=== PATIENT | female | born 1980 | race Caucasian/White ===

== ENCOUNTER 2016-10-28 22:06 | Emergency (ER) | payer OTHER ==
[~2016-10-28] VITALS: Ht 162.6 cm; Wt 72.7 kg
[2016-10-28 22:06] VITALS: BP 114/75
[2016-10-28] MEDS ORDERED: GLIP1TAB51 (22:15)
[2016-10-28] MEDS ORDERED: ALOG25TA (22:15)
[2016-10-28] MEDS ORDERED: BASA100I (22:15)
[2016-10-28] MEDS ORDERED: NORCO 5/325MG TABLET (BULK FOR ED) PO ONE (23:30)
[2016-10-28] MEDS ORDERED: BENZONATATE 100 MG CAP PO ONE (23:30)
[2016-10-28] MEDS ORDERED: predniSONE 20 MG TAB PO ONE (23:30)
[2016-10-28] MEDS ORDERED: IPRATROPIUM 0.5MG/ALBUTEROL 2.5MG INH SOL UD 3ML (DUONEB)(J7620) NEB ONE (23:30)
[2016-10-28] MEDS ORDERED: TESS100C PO (23:45)
[2016-10-28] MEDS ORDERED: PRED10TA2 PO (23:45)
[2016-10-28] MEDS ORDERED: ALBU17IN INH (23:45)
== END 2016-10-29 00:06 | disposition home or self-care (01) ==
LOC: M ED 22:06
DX: J44.9 Chronic obstructive pulmonary disease, unspecified (principal); J06.9 Acute upper respiratory infection, unspecified; Z72.0 Tobacco use

== ENCOUNTER → 2016-12-15 | Outpatient (REF) | payer OTHER ==
[~2016-12-15] MED LIST: ALBU17IN INH; ALOG25TA; BASA100I; GLIP1TAB51; PRED10TA2 PO; TESS100C PO
[2016-12-15 23:36] LABS: REASON FOR REVIEW COMPREHENSIVE REVIEW
== END ==
LOC: M LAB REF 14:32
PROVIDERS: ATTEND Internal Medicine Medical Oncology
DX: D75.1 Secondary polycythemia (principal)

== ENCOUNTER → 2016-12-21 | Outpatient (CLI) | payer OTHER ==
--- NOTE | 2016-12-21 10:47 | REP ---
ABDOMINAL SONOGRAPHY: HISTORY: Evaluate for hepatosplenomegaly. FINDINGS: Scanning through the right upper quadrant of the abdomen demonstrates a normal sized thin-walled gallbladder containing granular material in its dependent portion consistent with gravel like gallstones. No pericholecystic fluid is seen. Common bile duct is normal measuring 0.4 cm in greatest diameter. The liver is not felt to be enlarged with a craniocaudal dimension of 16.8 cm in the midclavicular line. No focal liver lesion is seen. No pancreatic abnormality is observed. The spleen measures 10.1 cm in greatest transverse dimension and is felt to be normal size. It is homogeneous. A normal caliber aorta is seen. Renal cortical echogenicity pattern is normal and renal contours are smooth bilaterally. The right kidney measures 11.3 x 6.2 x 5.1 cm. Left renal dimensions are 12.5 x 5.4 x 6.3 cm. No evidence hydronephrosis is seen. No cyst or mass is observed. IMPRESSION: Gravel like calculi the gallbladder. Otherwise negative complete abdominal sonography. Signed by Phu Torres MD 12/21/2016 01:18 P
== END ==
LOC: M RAD 08:54
PROVIDERS: ATTEND Internal Medicine Medical Oncology
DX: R16.1 Splenomegaly, not elsewhere classified (principal)

== ENCOUNTER 2018-05-25 17:18 | Inpatient (IN) | payer OTHER ==
[~2018-05-25] VITALS: Ht 157.5 cm; Wt 77.1 kg
[~2018-05-25 17:18] MED LIST changes: -ALOG25TA; +ALOG25TA PO; +GLIP10TA18 PO; -GLIP1TAB51
[2018-05-25] MEDS ORDERED: METO1TAB32 PO (17:45)
[2018-05-25] MEDS ORDERED: BASA100I SC (19:27)
[2018-05-25] MEDS ORDERED: VENTAER INH (19:27)
[2018-05-25] MEDS ORDERED: HEPARIN DRIP 25,000 UNITS in APPROPRIATE DILUENT 1 EA IV SCH (19:33)
[2018-05-25] MEDS ORDERED: HEPARIN SOD (PORCINE) 5000 UNITS/ML VIAL IV ONE (19:45)
[2018-05-25] MEDS ORDERED: HEPARIN SOD (PORCINE) 5000 UNITS/ML VIAL IV PRN (19:45)
[2018-05-25 20:35] LABS: HEMATOCRIT 49.7 % (36.0-47.0); HEMOGLOBIN 16.6 g/dl (12.0-15.5); MEAN CORPUSCULAR HEMOGLOBIN 29.2 pg (27.0-33.0); MEAN CORPUSCULAR HGB CONC 33.4 g/dl (32.0-36.5); MEAN CORPUSCULAR VOLUME 87.5 fl (80.0-96.0); PLATELET COUNT, AUTOMATED 259 10^3/uL (150-450); RED BLOOD COUNT 5.68 10^6/uL (4.00-5.40); WHITE BLOOD COUNT 12.8 10^3/uL (4.0-10.0)
--- NOTE | 2018-05-25 20:38 | REPVR ---
EXAM: US Duplex Right Lower Extremity Arteries EXAM DATE/TIME: 05/25/2018 6:40 PM CLINICAL HISTORY: 38 years old, female; Pain; Toes; Left; Additional info: Left first toe ischemia TECHNIQUE: Right Real-time ultrasound scan of the arteries of the right lower extremity with 2-D pinto scale, color Doppler flow and spectral waveform analysis. COMPARISON: No relevant prior studies available. FINDINGS: An real time arterial Doppler examination was performed of the left leg using pulsed Doppler and color Doppler with pinto scale imaging. Peak Systolic Velocity Measurements: Common Femoral Artery: 321 cm/sec Deep Femoral Artery: 70 cm/sec Proximal Superficial Femoral Artery: 56 cm/sec Mid Superficial Femoral Artery: 56 cm/sec Distal Superficial Femoral Artery: 37 cm/sec Popliteal Artery: 25 cm/sec Anterior Tibial Artery(proximal): 9 cm/sec Anterior tibial artery (distal): 11 cm/s Tibioperoneal trunk: 18 cm/s Posterior Tibial Artery (proximal): 31cm/sec Posterior tibial artery (distal): 24 cm/s Ankle brachial indices Posterior tibial artery 0.7 Anterior tibial artery 0.76 Soft tissues: Unremarkable. Findings: Diffuse moderate arteriosclerosis. Focal velocity increase at the level of the common femoral artery suggests a moderate stenosis. Down stream vessel waveforms maintain a normal systolic upstroke. A velocity gradient at the level the anterior tibial artery suggests in at least moderate stenosis. Again prompt systolic upstroke noted. Impression: 1. Moderate stenosis of left common femoral artery. 2. Moderate stenosis of the proximal anterior tibial artery. 3. ROLA indicates moderate peripheral arterial disease Electronically signed by: Katy Salinas On 05/25/2018 20:37:32 PM
[2018-05-25 20:44] LABS: BLOOD UREA NITROGEN 27 MG/DL (7-18); C REACTIVE PROTEIN QUANTITATIV 0.68 MG/DL (0.00-0.30); CARBON DIOXIDE LEVEL 24 MEQ/L (21-32); CHLORIDE LEVEL 104 MEQ/L (98-107); CREATININE FOR GFR 0.71 MG/DL (0.55-1.30); GLOMERULAR FILTRATION RATE > 60.0 (>58); GLUCOSE, FASTING 186 MG/DL (70-100); POTASSIUM SERUM 4.3 MEQ/L (3.5-5.1); SODIUM LEVEL 138 MEQ/L (136-145)
[2018-05-25 20:48] LABS: INR 0.93; PROTHROMBIN TIME 12.6 SECONDS (12.1-14.4)
[2018-05-25] MEDS: SENOKOT S TAB PO SCH (21:00)
[2018-05-25] MEDS: DOCUSATE SODIUM 100 MG CAP PO SCH (21:00)
[2018-05-25] MEDS: PANTOPRAZOLE 40MG INJ (PROTONIX) (C9113) IV SCH (21:00)
[2018-05-25] MEDS ORDERED: MOM 30ML SUSPENSION UDC PO PRN (21:45)
[2018-05-25] MEDS ORDERED: ALBUTEROL 90 MCG/ACT 8GM HFA INHALER INH PRN (21:45)
[2018-05-25] MEDS ORDERED: BISACODYL 10 MG SUPP PR PRN (21:45)
--- NOTE | 2018-05-25 21:54 | HPEPDOC ---
General Date of Admission 05/25/2018 Attending Physician: Librado Koehler MD Chief Complaint The patient is a 38-year-old female admitted with a reason for visit of Toe Problem. Source: Patient Exam Limitations: No limitations History of Present Illness Patient is a 38-year-old female with tobacco history and traumatic injury to her left first toe. Patient was seen at an outside hospital and transferred to [facility] for evaluation. Patient has gangrene and ischemia of the left first toe and nonpalpable pulses in the left foot and will be admitted for angiography of the left lower extremity. Patient is at high risk for loss of her left first toe. Patient denies any claudication. Patient denies any TIAs or rest pain. Patient notes that she hit her toe on the ice while she was walking and a color change and has been exquisitely painful since. Home Medications Scheduled (Basaglar Kwikpen) 100 Unit/Ml Inj, 16 UNIT SC QHS, (Reported) Alogliptin Benzoate (Alogliptin) 25 Mg Tab, 25 MG PO DAILY, (Reported) Clopidogrel Bisulfate (Plavix) 75 Mg Tab, 75 MG PO DAILY Glipizide (Glipizide ER) 10 Mg Tab, 10 MG PO DAILY, (Reported) Metoprolol Succinate (Metoprolol Succinate ER) 25 Mg Tab, 25 MG PO DAILY, (Reported) Scheduled PRN Acetaminophen/Hydrocodone ([place], Anexsia 5/325) 1 Tab Tab, 1 TAB PO Q4HP PRN for MODERATE PAIN (PS 5-7) Albuterol Sulfate (Ventolin Hfa) 108 Mcg/Act Aer, 2 PUFF INH Q4H PRN for SHORTNE SS OF BREATH, (Reported) Allergies Coded Allergies: MS - Metformin (Verified Allergy, Unknown, 05/25/18) MS - Tomato (Verified Allergy, Unknown, 05/25/18) Past Medical History Medical History Diabetes mellitus Tobacco history Surgical History None Family History Significant Family History: No pertinent family hx Hypertension Social History * Smoker: current smoker Alcohol: occationally Recent Travel/Sick Contacts: Denies: Recent travel, Recent sick contacts Psychosocial History: No pertinent psych hx Review of Systems Constitutional: Denies: Chills, Fever, Malaise, Night Sweats, Weakness, Fatigue, Weight Loss, Lethargy Eyes: Denies: Pain, Vision change, Conjunctivae inflammation, Eyelid inflammation, Redness ENT: Denies: Head Aches, Ear Pain, Dysphagia, Sinus Congestion, Post Nasal Drip, Sore Throat, Epistaxis Skin: Denies: Rash, Lesions, Jaundice, Bruising, Itching, Dry, Breakdown, Nail Changes Pulmonary: Denies: Dyspnea, Cough, Pleuritic Chest Pain Cardiovascular: Denies: Chest Pain, Palpitations, Orthopnea, Paroxysmal Noc. Dyspnea, Edema, Lt Headedness Gastrointestinal: Denies: Nausea, Vomiting, Abdominal Pain, Diarrhea, Constipation, Melena, Hematochezia Genitourinary: Denies: Dysuria, Frequency, Incontinence, Hematuria, Retention Hematologic: Denies: Bruising, Bleeding Excessively, Petecchia, Purpura, En larged Lymph Nodes Endocrine: Denies: Polydipsia, Polyphagia, Polyuria, Heat Intolerance, Cold Intolerance Musculoskeletal: Denies: Neck Pain, Back Pain, Shoulder Pain, Arm Pain, Hand Pain, Leg Pain, Foot Pain, Joint Pain, Muscle Pain, Spasms Neurological: Denies: Weakness, Numbness, Incoordination, Change in speech, Confusion, Seizures Psych: Reports: Mood Normal; Denies: Anxiety, Depression, Memory Issues, Thoughts of Self Harm, Anger, Thoughts of Harming Other Physical Examination General Exam: Positive: Alert, Cooperative, Mild Distress Eye Exam: Positive: PERRLA ENT Exam: Positive: Atraumatic, Mucous membr. moist/pink, Pharynx Normal, Tongue Midline, Nares Patent Neck Exam: Positive: Supple, +2 carotid pulse wo bruit Chest Exam: Positive: Clear to auscultation, Normal air movement Heart Exam: Positive: Rate Normal Telemetry: Positive: No significant arrhythmia Abdomen Exam: Positive: Normal bowel sounds Extremity Exam: Positive: Other (patient has nonpalpable pulses in the left lo wer extremity but the dorsalis pedis and posterior tibial pulses are obtainable with Doppler and are biphasic) Skin Exam: Positive: Nl turgor and temperature Neuro Exam: Positive: Normal Gait, Normal Speech, Strength at 5/5 X4 ext, Normal Tone, Sensation Intact, Cranial Nerves 3-12 NL, Reflexes 2+ Psych Exam: Positive: Mental status NL, Mood NL, Memory Intact, Oriented x 3 Vital Signs Vital Signs Date Time Temp Pulse Resp B/P (MAP) Pulse Ox O2 Delivery O2 Flow Rate FiO2 05/25/18 21:03 100 18 98 Room Air 05/25/18 21:00 108/80 (89) 05/25/18 17:19 99.2 Laboratory Data Labs 24H Laboratory Tests 2 05/25/18 19:53: Nucleated Red Blood Cells % (auto) 0.0, Prothrombin Time 12.6, Prothromb Time International Ratio 0.93, Activated Partial Thromboplast Time 27.0, Anion Gap 10, Glomerular Filtration Rate > 60.0, Blood Urea Nitrogen 27H, Creatinine 0.71, Sodium Level 138, Potassium Level 4.3, Chloride Level 104, Carbon Dioxide Level 24, Calcium Level 9.0, C-Reactive Protein, Quantitative 0.68H CBC/BMP Laboratory Tests 05/25/18 19:53 Red Blood Count 5.68 H, Mean Corpuscular Volume 87.5, Mean Corpuscular Hemoglobin 29.2, Mean Corpuscular Hemoglobin Concent 33.4, Red Cell Distribution Width 13.2, Calcium Level 9.0 Assessment/Plan Assessment Patient is a 38-year-old female with traumatic injury to her left first toe with ischemia and gangrene of the left toe with nonpalpable pulses in the left lower extremity. Patient has a significant tobacco history. Plan Patient will be admitted started on heparin drip and will undergo a left lower extremity angiogram with possible angioplasty stent and/or arthrectomy. Librado Koehler MD May 25, 2018 21:54
[2018-05-25] MEDS: MORPHINE 4 MG/ML 1ML VIAL/SYRINGE (J2270) IV PRN (22:58)
[2018-05-25] MEDS: PIPERACILLIN/TAZOBACTAM SOD 3.375 GM in D5W MINI-BAG PLUS 50 ML IV SCH (23:38)
[2018-05-26 01:45] VITALS: BP 116/71
[2018-05-26] MEDS ORDERED: HEPARIN DRIP 25,000 UNITS in APPROPRIATE DILUENT 1 EA IV SCH (02:10)
[2018-05-26 03:00] LABS: HEMATOCRIT 44.8 % (36.0-47.0); HEMOGLOBIN 15.1 g/dl (12.0-15.5); MEAN CORPUSCULAR HEMOGLOBIN 29.7 pg (27.0-33.0); MEAN CORPUSCULAR HGB CONC 33.7 g/dl (32.0-36.5); PLATELET COUNT, AUTOMATED 224 10^3/uL (150-450); RED BLOOD COUNT 5.09 10^6/uL (4.00-5.40); WHITE BLOOD COUNT 10.7 10^3/uL (4.0-10.0)
[2018-05-26] MEDS: HEPARIN SOD (PORCINE) 5000 UNITS/ML VIAL IV PRN ×2 (03:06→10:42)
[2018-05-26] MEDS: NORCO, ANEXSIA 5/325MG TABLET (HYDROcodone/ACETAMINOPHEN) PO PRN ×2 (04:53→20:58)
[2018-05-26] MEDS: PIPERACILLIN/TAZOBACTAM SOD 3.375 GM in D5W MINI-BAG PLUS 50 ML IV SCH ×4 (06:00→23:29)
[2018-05-26] MEDS: PANTOPRAZOLE 40MG INJ (PROTONIX) (C9113) IV SCH ×2 (09:12→20:59)
[2018-05-26] MEDS: glipiZIDE XL 5 MG TABCR PO SCH (09:13)
[2018-05-26] MEDS: METOPROLOL SUCC *XL* 25MG TAB (TopROL *XL*) PO SCH (09:14)
[2018-05-26 09:15] VITALS: BP 128/77
[2018-05-26] MEDS: DOCUSATE SODIUM 100 MG CAP PO SCH ×2 (09:15→20:58)
[2018-05-26] MEDS: SENOKOT S TAB PO SCH ×2 (09:15→20:58)
[2018-05-26] MEDS: MORPHINE 4 MG/ML 1ML VIAL/SYRINGE (J2270) IV PRN ×4 (12:07→23:30)
[2018-05-26] MEDS ORDERED: LIDOCAINE 2% MDV 20 ML VIAL As Ordered ONE (16:17)
[2018-05-26] MEDS ORDERED: MIDAZOLAM INJ 2 MG/2 ML VIAL (J2250) As Ordered ONE (16:17)
[2018-05-26] MEDS ORDERED: HEPARIN 1,000 UNITS/ML 10ML VIAL (FOR RADIOLOGY& DIALYSIS ONLY) As Ordered ONE (16:17)
[2018-05-26] MEDS ORDERED: fentaNYL 100 MCG/2 ML INJECTION (J3010) As Ordered ONE (16:17)
[2018-05-26] MEDS ORDERED: ISOVUE-300 61% 50ML VIAL (Q9967) As Ordered ONE (16:18)
[2018-05-26 18:00] VITALS: BP 163/87
[2018-05-26 18:30] VITALS: BP 144/90
[2018-05-26] MEDS ORDERED: CLOPIDOGREL 300 MG TAB (PLAVIX) PO STA (18:53)
[2018-05-26 19:30] VITALS: BP 116/70
[2018-05-26 20:30] VITALS: BP 115/67
[2018-05-27] MEDS: NORCO, ANEXSIA 5/325MG TABLET (HYDROcodone/ACETAMINOPHEN) PO PRN ×3 (03:37→13:35)
[2018-05-27 04:00] VITALS: BP 131/83
[2018-05-27] MEDS: PIPERACILLIN/TAZOBACTAM SOD 3.375 GM in D5W MINI-BAG PLUS 50 ML IV SCH ×2 (05:11→11:04)
[2018-05-27] MEDS: MORPHINE 4 MG/ML 1ML VIAL/SYRINGE (J2270) IV PRN ×2 (06:33→11:02)
[2018-05-27 08:00] VITALS: BP 133/79
[2018-05-27] MEDS: SENOKOT S TAB PO SCH (08:50)
[2018-05-27] MEDS: DOCUSATE SODIUM 100 MG CAP PO SCH (08:50)
[2018-05-27 08:51] VITALS: BP 133/79
[2018-05-27] MEDS: PANTOPRAZOLE 40MG INJ (PROTONIX) (C9113) IV SCH (08:51)
[2018-05-27] MEDS: glipiZIDE XL 5 MG TABCR PO SCH (08:51)
[2018-05-27] MEDS: METOPROLOL SUCC *XL* 25MG TAB (TopROL *XL*) PO SCH (08:51)
[2018-05-27] MEDS ORDERED: NORCOTAB PO (11:43)
[2018-05-27] MEDS ORDERED: PLAV1TAB2 PO (11:43)
--- NOTE | 2018-05-27 11:45 | ROOPDOC ---
Librado Koehler MD May 27, 2018 11:45
--- NOTE | 2018-05-27 11:46 | DS.PDOC ---
Discharge Summary General Date of Admission May 25, 2018 at 21:44 Date of Discharge 05/27/2018 Attending Physician: Librado Koehler MD Discharge Summary PROCEDURES PERFORMED DURING STAY: Aortogram, iliofemoral angiogram left lower extremity angiography.. ADMITTING DIAGNOSES: 1. Gangrene and ischemia of the left first toe, tobacco use. DISCHARGE DIAGNOSES: 1. Gangrene and ischemia of the left first toe, tobacco use, aortoiliac atherosclerotic arterial occlusive disease, femoral-popliteal arterial atherosclerotic occlusive disease.. COMPLICATIONS/CHIEF COMPLAINT: Injury Of L Toe,Ischemia Of Lower Extremity. HISTORY OF PRESENT ILLNESS: Patient is a 38-year-old female who had dramatic injury to her left first toe which turned colors and was ischemic with gangrene and nonpalpable pulses in the left lower extremity. HOSPITAL COURSE: Patient was admitted and underwent angiography which showed brandie nosis in the left iliac artery as well as the left common femoral artery which did not require intervention. Patient's pain was controlled with narcotic oral pain medication. Patient was instructed on the need to stop tobacco use. Patient will be discharged home with instructions to follow-up in the office. DISCHARGE MEDICATIONS: Please see below. ALLERGIES: Please see below. PHYSICAL EXAMINATION ON DISCHARGE: VITAL SIGNS: Please see below. GENERAL: No apparent distress HEENT: Normal NECK: Supple with no carotid bruits CARDIOVASCULAR EXAMINATION: Regular rate and rhythm RESPIRATORY EXAMINATION: Clear to auscultation bilaterally ABDOMINAL EXAMINATION: Soft nontender nondistended with no palpable pulsatile mass EXTREMITIES: Warm and well-perfused. Left first toe is discolored with some gangrene of the tip of the toe and the nail. Patient has nonpalpable left lower extreme A pulses but are obtainable with Doppler. Right lower extremity shows 2+ dorsalis pedis and posterior tibial pulses. SKIN: Warm and well-perfused NEUROLOGICAL EXAMINATION: Awake alert oriented 3 with no focal deficits PSYCHIATRIC EXAMINATION: Normal LABORATORY DATA: Please see below. IMAGING: Angiography showed stenosis in the left iliac artery and left common femoral artery. PROGNOSIS: Good ACTIVITY: As tolerated. DIET: Low-fat low-cholesterol diet DISCHARGE PLAN: Patient will be discharged home DISPOSITION: . DISCHARGE INSTRUCTIONS: 1. Stop smoking, begin exercising and follow-up in the office in 1-2 weeks.. ITEMS TO FOLLOWUP ON ON OUTPATIENT: 1. Looking cessation. DISCHARGE CONDITION: Stable. TIME SPENT ON DISCHARGE: Greater than 45 minutes. Vital Signs/I&Os Vital Signs Date Time Temp Pulse Resp B/P (MAP) Pulse Ox O2 Delivery O2 Flow Rate FiO2 05/27/18 11:02 16 05/27/18 08:51 110 133/79 05/27/18 08:00 98.4 97 05/26/18 01:39 Room Air I&O- Last 24 Hours up to 6 AM 05/27/18 06:00 Intake Total 1194.5 ml Output Total 350 ml Balance 844.5 ml Discharge Medications Scheduled (Basaglar Kwikpen) 100 Unit/Ml Inj, 16 UNIT SC QHS, (Reported) Alogliptin Benzoate (Alogliptin) 25 Mg Tab, 25 MG PO DAILY, (Reported) Clopidogrel Bisulfate (Plavix) 75 Mg Tab, 75 MG PO DAILY Glipizide (Glipizide ER) 10 Mg Tab, 10 MG PO DAILY, (Reported) Metoprolol Succinate (Metoprolol Succinate ER) 25 Mg Tab, 25 MG PO DAILY, (Reported) Scheduled PRN Acetaminophen/Hydrocodone ([place], Anexsia 5/325) 1 Tab Tab, 1 TAB PO Q4HP PRN for MODERATE PAIN (PS 5-7) Albuterol Sulfate (Ventolin Hfa) 108 Mcg/Act Aer, 2 PUFF INH Q4H PRN for SHORTNESS OF BREATH, (Reported) Allergies Coded Allergies: MS - Metformin (Verified Allergy, Unknown, 05/25/18) MS - Tomato (Verified Allergy, Unknown, 05/25/18) Librado Koehler MD May 27, 2018 11:45
[2018-05-27 12:00] VITALS: BP 163/103
[2018-05-27] MEDS ORDERED: CLOPIDOGREL 75 MG TAB PO ONE (12:00)
--- NOTE | 2018-06-15 09:03 | REPIR ---
DATE OF PROCEDURE: 05/26/2018 PREOPERATIVE DIAGNOSES: Diabetes mellitus, left first toe gangrene, tobacco use. POSTOPERATIVE DIAGNOSES: Diabetes mellitus, left first toe gangrene, aortoiliac atherosclerotic occlusive disease, femoral-popliteal arterial atherosclerotic occlusive disease, tobacco use. PROCEDURE: Aortogram, iliofemoral angiogram, bilateral lower extremity angiography, Mynx closure device of the right common femoral arteriotomy. ATTENDING SURGEON: Dr. Raeann Koehler [employer] MECH[employer]IC: Eunice Becker ANESTHESIA: Local with 10 mL of 2% lidocaine. FLUORO TIME: 0.6 minutes. CONTRAST: 22 mL of Isovue-300. HEPARIN: None. COMPLICATIONS: None. DRAINS: None. SPECIMENS: None. IMPLANTS: None. INDICATIONS: The patient is a 38-year-old female who presented to the emergency room from an [facility] with gangrene and severe pain in her left first toe. The patient was transferred to [facility], evaluated, and admitted to the hospital to undergo angiography due to critical limb ischemia and gangrene of her left first toe. The patient will undergo angiography with possible angioplasty stent and/or atherectomy. Risks, benefits and alternative treatment options were discussed with the patient. DESCRIPTION OF PROCEDURE: The patient was taken to the angiography suite, placed supine on the angiography room table and then prepped and draped in standard surgical fashion. The right common femoral artery was cannulated with a micropuncture needle after anesthetizing the overlying skin with 2% lidocaine. A micropuncture wire was advanced to a micropuncture needle, which was upsized to a micropuncture sheath. A Bentson wire was advanced to the micropuncture sheath, which was upsized to a 5-Swedish sheath. An Omni flush catheter was placed in aorta and aortogram was performed. Catheter was pulled down to the level of the bifurcation of the iliac arteries and iliofemoral angiogram was performed. Catheter remained at the bifurcation iliac arteries and bilateral lower extremity angiography was performed. Catheter was then removed over a Bentson wire. A Mynx closure device was used to close the arteriotomy in the right common femoral artery with an additional 10 minutes adjunctive pressure applied for hemostasis. Dressings were then applied. The patient tolerated procedure well. All instrument, sponge and needle counts were correct at the end of the case. There were no complications. Dr. Koehler was present for and directed the entire case. The patient was transferred to the holding area and subsequently to the floor in stable condition. RADIOLOGIC SUPERVISION INTERPRETATION: The aortogram showed the aorta to be widely patent. The renal arteries, superior mesenteric, and celiac arteries were widely patent, as well as the inferior mesenteric artery and lumbar vessels. There was an approximate 40% stenosis at the origin of the left common iliac artery. The right lower extremity showed no evidence of atherosclerotic arterial occlusive disease in any of the vessels. The left lower extremity also showed an approximate 50% stenosis in the left common femoral artery just above the superficial femoral, profunda femoris artery bifurcation. The remainder of the superficial femoral and popliteal artery were patent, as well as the tibioperoneal vessels in the left lower extremity. A Mynx closure device was used to close the arteriotomy in the right common femoral artery.
== END 2018-05-27 15:00 | disposition home or self-care (01) | DRG 197 ==
LOC: M ED 17:18 → M ED INP 21:44 → M PED 05-26 01:45
PROVIDERS: ADMIT Surgery Vascular Surgery; ATTEND Surgery Vascular Surgery
PROC: B40DYZZ Plain Radiography of Aorta and Bilateral Lower Extremity Arteries using Other Contrast (ICD-10-PCS; principal; 2018-05-26)
DX: E11.51 Type 2 diabetes mellitus with diabetic peripheral angiopathy without gangrene (principal); I70.262 Atherosclerosis of native arteries of extremities with gangrene, left leg; Z79.84 Long term (current) use of oral hypoglycemic drugs; Z79.899 Other long term (current) drug therapy; Z88.8 Allergy status to other drugs, medicaments and biological substances; Z91.018 Allergy to other foods